=== PATIENT | female | born 1965 | race African-American/Black ===

== ENCOUNTER 2016-03-19 06:25 | Inpatient (IN) | payer OTHER ==
[~2016-03-19] VITALS: Ht 167.6 cm; Wt 103.4 kg
[2016-03-19] VITALS (13 sets, daily range): BP systolic 133–190; BP diastolic 81–107
[~2016-03-19 06:25] MED LIST: ADVIL,NUPRIN,M200 MG PO; AMOXICILLIN500 MG PO; BACTRIM,SEPT1 TABLET PO; DEBROX15 ML LEFT EAR; HYDROCODON-ACE1 EAC7 PO; K-DUR20 MEQ PO; KEFLEX500 MG PO; LISINOPRIL10 MG PO; LOVENOX100 MG/1 M SC; OXAYDO5 MG PO; PHENAZOPYRIDIN100 MG PO; TYLENOL EXTRA500 MG PO
[2016-03-19 07:08] LABS: HEMATOCRIT 30.2 % (36.0-46.0); MCH 29.4 PG (29.0-34.0); MCHC 32.8 G/DL (30.0-36.0); MCV 89.6 FL (83-99); RBC DIS.WIDTH-CV 13.5 % (11.8-14.6); RBC DIS.WIDTH-SD 42.5 % (39-53); RED BLOOD COUNT 3.37 M/uL (3.80-5.20); WHITE BLOOD COUNT 3.3 K/uL (4.1-10.2)
[2016-03-19 07:10] LABS: PLATELET COUNT 119 K/uL (156-360)
[2016-03-19 07:38] LABS: D-DIMER ELISA 0.33 mg/L FEU (< 0.57)
[2016-03-19 07:39] LABS: ANION GAP 7 MEQ/L (2-14); CHLORIDE 110 MEQ/L (99-109); GFR ESTIMATE (CALCULATED) > 59 mL/min/; GLUCOSE 109 mg/dL (70-99); POTASSIUM 3.7 MEQ/L (3.7-5.4); SAMPLE HEMOLYSIS CHECK 0; SAMPLE ICTERIC CHECK 0; SAMPLE LIPEMIA CHECK 0; SODIUM 143 MEQ/L (136-147); UREA NITROGEN (BUN) 23 mg/dL (9-23)
[2016-03-19 07:44] LABS: TROP-I INTERPRETATION NEGATIVE; TROPONIN-I < 0.01 ng/mL (0.0-0.30)
[2016-03-19 08:16] LABS: HEMATOLOGY COMMENT 1 SMEAR COMPATIBLE
[2016-03-19 08:19] LABS: CREATINE KINASE 18 IU/L (1-294)
[2016-03-19] MEDS ORDERED: XARELTO20 MG PO (09:04)
[2016-03-19 11:28] LABS: TROP-I INTERPRETATION NEGATIVE; TROPONIN-I < 0.01 ng/mL (0.0-0.30)
[2016-03-19] MEDS ORDERED: LISINOPRIL10 MG PO (12:13)
[2016-03-19] MEDS ORDERED: TRAMADOL HCL50 MG PO (12:14)
[2016-03-19 14:43] LABS: INTER. NORMALIZED RATIO 1.2; PROTHROMBIN TIME 11.8 (9.2-11.2); PTT 30.8 (25-32)
[2016-03-19 18:23] LABS: METH RESISTANT S AUREUS PCR NEGATIVE (NEGATIVE)
[2016-03-19 18:32] LABS: PROBE CHECK PASS; SPECIMEN PROCESSING CONTROL PASS
[2016-03-20] VITALS (27 sets, daily range): BP systolic 117–171; BP diastolic 67–91
[2016-03-20 05:51] LABS: HEMATOCRIT 28.9 % (36.0-46.0); MCH 28.7 PG (29.0-34.0); MCHC 32.5 G/DL (30.0-36.0); MCV 88.1 FL (83-99); MEAN PLAT.VOLUME 11.3 uM^3 (9.5-12.4); PLATELET COUNT 100 K/uL (156-360); RBC DIS.WIDTH-CV 13.7 % (11.8-14.6); RBC DIS.WIDTH-SD 44.1 % (39-53); RED BLOOD COUNT 3.28 M/uL (3.80-5.20); WHITE BLOOD COUNT 4.2 K/uL (4.1-10.2)
[2016-03-20 06:06] LABS: INTER. NORMALIZED RATIO 1.3; PROTHROMBIN TIME 13.3 (9.2-11.2)
[2016-03-20 06:13] LABS: ANION GAP 11 MEQ/L (2-14); CHLORIDE 103 MEQ/L (99-109); GFR ESTIMATE (CALCULATED) > 59 mL/min/; GLUCOSE 108 mg/dL (70-99); POTASSIUM 3.1 MEQ/L (3.7-5.4); SAMPLE HEMOLYSIS CHECK 0; SAMPLE ICTERIC CHECK 0; SAMPLE LIPEMIA CHECK 0; SODIUM 139 MEQ/L (136-147); UREA NITROGEN (BUN) 14 mg/dL (9-23)
[2016-03-21] VITALS (10 sets, daily range): BP systolic 121–165; BP diastolic 70–87
[2016-03-21 05:51] LABS: MEAN PLAT.VOLUME 11.2 uM^3 (9.5-12.4); PLATELET COUNT 93 K/uL (156-360)
[2016-03-21 06:22] LABS: HEMATOCRIT 27.6 % (36.0-46.0); MCH 29.3 PG (29.0-34.0); MCHC 32.6 G/DL (30.0-36.0); MCV 89.9 FL (83-99); RBC DIS.WIDTH-CV 14.2 % (11.8-14.6); RBC DIS.WIDTH-SD 45.9 % (39-53); RED BLOOD COUNT 3.07 M/uL (3.80-5.20); WHITE BLOOD COUNT 4.5 K/uL (4.1-10.2)
[2016-03-21 06:32] LABS: EOSINOPHIL (%) 0.9 % (0-5); HEMATOLOGY COMMENT 1 REV; IMMATURE GRANULOCYTE (%) 5.2 % (0.0-0.7); IMMATURE GRANULOCYTE COUNT 0.2 K/uL; LYMPHOCYTE COUNT 0.7 K/uL (1.0-2.8); MONOCYTE (%) 17.8 % (3-12); MONOCYTE COUNT 0.8 K/uL (0-0.8); NEUTROPHIL (%) 59.7 % (45-76); NEUTROPHIL COUNT 2.7 K/uL (1.8-6.4); USER ID SLU
[2016-03-21 06:33] LABS: ANION GAP 10 MEQ/L (2-14); CHLORIDE 104 MEQ/L (99-109); GFR ESTIMATE (CALCULATED) > 59 mL/min/; GLUCOSE 110 mg/dL (70-99); MAGNESIUM 1.3 mg/dl (1.3-2.7); POTASSIUM 3.7 MEQ/L (3.7-5.4); SAMPLE HEMOLYSIS CHECK 0; SAMPLE ICTERIC CHECK 0; SAMPLE LIPEMIA CHECK 0; SODIUM 138 MEQ/L (136-147)
[2016-03-21 06:34] LABS: UREA NITROGEN (BUN) 25 mg/dL (9-23)
[2016-03-21 09:29] LABS: CREATINE KINASE 13 IU/L (1-294)
[2016-03-21 09:53] LABS: TROP-I INTERPRETATION NEGATIVE; TROPONIN-I < 0.01 ng/mL (0.0-0.30)
[2016-03-21 14:20] LABS: ADD MIUA? YES; BILIRUBIN NEGATIVE; BLOOD SMALL; COLOR YELLOW ((YELLOW)); GLUCOSE (STRIP) NEGATIVE; KETONES NEGATIVE; LEUKOCYTES NEGATIVE; NITRITE NEGATIVE; PH, URINE 5.5 (5-8); PROTEIN (STRIP) NEGATIVE; SPECIFIC GRAVITY 1.021 (1.000-1.030)
[2016-03-21 14:34] LABS: AMPHETAMINES QUANT VALUE 0 NG/ML; BARBITUATES QUANT VALUE 0 NG/ML; BENZODIAZEPINES QUANT VALUE 0 NG/ML; BENZODIAZEPINES, URINE SCREEN Negative (200 ng/mL); MARIJUANA QUANT VALUE 0 NG/ML; PHENCYCLIDINE QUANT VALUE 0 NG/ML
[2016-03-21 14:42] LABS: BACTERIA NONE SEEN /HPF; CASTS NONE SEEN /LPF; CRYSTALS NONE SEEN; EPITHELIAL CELLS 1+ /HPF; MUCUS NONE SEEN /LPF; PATHOLOGICAL CAST NONE SEEN; RED BLOOD CELLS 0-5 /HPF (0-5); SMALL ROUND CELL NONE SEEN; UCUL ADDED? NO; YEAST-LIKE CELL NONE SEEN
[2016-03-21] MEDS ORDERED: LISINOPRIL-HCT1 EAC3 PO (14:59)
[2016-03-21] MEDS ORDERED: GABAPENTIN100 MG PO (15:00)
[2016-03-21] MEDS ORDERED: LABETALOL HCL100 MG PO (15:10)
== END 2016-03-21 17:10 | disposition home or self-care (01) | DRG 305 ==
LOC: EME 06:25 → 4WEST 13:08 → EDOF 13:08 → 4WEST 15:01
PROVIDERS: Emergency Medicine; Hospitalist; Internal Medicine Critical Care Medicine; Obstetrics & Gynecology
DX: I16.1 Hypertensive emergency (principal); E83.42 Hypomagnesemia; D69.6 Thrombocytopenia, unspecified; R07.9 Chest pain, unspecified; E87.6 Hypokalemia; R94.31 Abnormal electrocardiogram [ECG] [EKG]; D53.9 Nutritional anemia, unspecified; C53.9 Malignant neoplasm of cervix uteri, unspecified; D50.0 Iron deficiency anemia secondary to blood loss (chronic); Z86.711 Personal history of pulmonary embolism; Z87.891 Personal history of nicotine dependence
CPT/HCPCS: 71020; 71275; 80048; 81003; 82550; 83735; 84100; 84484; 85025; 85027; 85379; 85610; 85730; 87641; 93005; 99281; 99285; J2270; J2405; J3010; J3475; J7030; J7050

== ENCOUNTER 2016-10-03 15:50 | Inpatient (IN) | payer OTHER ==
[~2016-10-03] VITALS: Ht 162.6 cm; Wt 105.5 kg
[~2016-10-03 15:50] MED LIST changes: +GABAPENTIN100 MG PO; +LABETALOL HCL100 MG PO; +LISINOPRIL-HCT1 EAC3 PO; +TRAMADOL HCL50 MG PO; +XARELTO20 MG PO
[2016-10-03 16:58] LABS: HEMATOCRIT 24.1 % (36.0-46.0); MCH 30.4 PG (29.0-34.0); MCHC 31.5 G/DL (30.0-36.0); RBC DIS.WIDTH-CV 20.7 % (11.8-14.6); RBC DIS.WIDTH-SD 71.2 % (39-53); WHITE BLOOD COUNT 4.5 K/uL (4.1-10.2)
[2016-10-03 16:59] LABS: EOSINOPHIL COUNT 0.1 K/uL (0-0.3); IMMATURE GRANULOCYTE (%) 0.2 % (0.0-0.7); INSTRUMENT ABS NEUTROPHIL CT 3.5 K/uL; LYMPHOCYTE COUNT 0.6 K/uL (1.0-2.8); MONOCYTE (%) 6.4 % (3-12); MONOCYTE COUNT 0.3 K/uL (0-0.8); NEUTROPHIL (%) 77.2 % (45-76); NEUTROPHIL COUNT 3.5 K/uL (1.8-6.4)
[2016-10-03 17:01] LABS: MCV 96.4 FL (83-99); PLATELET COUNT 225 K/uL (156-360)
[2016-10-03 17:06] LABS: CHLORIDE 107 mEq/L (99-109); POTASSIUM 3.6 mEq/L (3.7-5.4); SODIUM 143 mEq/L (136-147)
[2016-10-03 17:08] LABS: GLUCOSE 106 mg/dL (70-99)
[2016-10-03 17:09] LABS: ANION GAP 11 MEQ/L (2-14)
[2016-10-03 17:10] LABS: TOTAL BILIRUBIN 0.4 mg/dL (0.0-1.0)
[2016-10-03 17:12] LABS: ALKALINE PHOSPHATASE 98 IU/L (3-129); GFR ESTIMATE (CALCULATED) > 59 mL/min/
[2016-10-03 17:13] LABS: UREA NITROGEN (BUN) 27 mg/dL (9-23)
[2016-10-03] MEDS ORDERED: LISINOPRIL-HCT1 EAC3 PO (17:54)
[2016-10-03] MEDS ORDERED: COLACE100 MG PO (17:55)
[2016-10-03 22:42] VITALS: BP 137/81
[2016-10-04] VITALS (11 sets, daily range): BP systolic 126–173; BP diastolic 59–82
[2016-10-04 08:14] LABS: HEMATOCRIT 23.8 % (36.0-46.0); MCH 30.5 PG (29.0-34.0); MCHC 30.7 G/DL (30.0-36.0); MCV 99.6 FL (83-99); MEAN PLAT.VOLUME 9.3 uM^3 (9.5-12.4); NRBC (%) 0.5 /100 WBC (0-0); PLATELET COUNT 230 K/uL (156-360); RBC DIS.WIDTH-CV 20.9 % (11.8-14.6); RBC DIS.WIDTH-SD 74.9 % (39-53); RED BLOOD COUNT 2.39 M/uL (3.80-5.20); WHITE BLOOD COUNT 3.9 K/uL (4.1-10.2)
[2016-10-04 08:44] LABS: ANION GAP 11 MEQ/L (2-14); CHLORIDE 109 MEQ/L (99-109); GFR ESTIMATE (CALCULATED) > 59 mL/min/; GLUCOSE 154 mg/dL (70-99); POTASSIUM 4.2 MEQ/L (3.7-5.4); SAMPLE HEMOLYSIS CHECK 0; SAMPLE ICTERIC CHECK 0; SAMPLE LIPEMIA CHECK 0; SODIUM 144 MEQ/L (136-147); UREA NITROGEN (BUN) 37 mg/dL (9-23)
[2016-10-05 03:00] VITALS: BP 160/72
[2016-10-05 08:12] LABS: MCHC 32.4 G/DL (30.0-36.0); MCV 95.7 FL (83-99); MEAN PLAT.VOLUME 9.1 uM^3 (9.5-12.4); NRBC (%) 0.5 /100 WBC (0-0); PLATELET COUNT 232 K/uL (156-360); RBC DIS.WIDTH-CV 19.5 % (11.8-14.6); RBC DIS.WIDTH-SD 66.7 % (39-53); WHITE BLOOD COUNT 6.3 K/uL (4.1-10.2)
[2016-10-05 08:13] LABS: RED BLOOD COUNT 3.03 M/uL (3.80-5.20)
[2016-10-05 08:30] LABS: ANION GAP 9 MEQ/L (2-14); CHLORIDE 107 MEQ/L (99-109); GFR ESTIMATE (CALCULATED) > 59 mL/min/; GLUCOSE 135 mg/dL (70-99); POTASSIUM 4.4 MEQ/L (3.7-5.4); SAMPLE HEMOLYSIS CHECK 0; SAMPLE ICTERIC CHECK 0; SAMPLE LIPEMIA CHECK 0; SODIUM 140 MEQ/L (136-147); UREA NITROGEN (BUN) 49 mg/dL (9-23)
[2016-10-05 08:44] VITALS: BP 142/80
[2016-10-05 11:32] VITALS: BP 149/70
[2016-10-05 16:10] VITALS: BP 141/97
[2016-10-05 16:44] LABS: INTERNAL CONTROL VALID? YES
[2016-10-05 19:48] VITALS: BP 144/63
[2016-10-05 23:03] VITALS: BP 133/61
[2016-10-06 03:39] VITALS: BP 170/79
[2016-10-06 07:47] LABS: ANION GAP 6 MEQ/L (2-14); CHLORIDE 106 MEQ/L (99-109); GFR ESTIMATE (CALCULATED) > 59 mL/min/; GLUCOSE 131 mg/dL (70-99); POTASSIUM 4.2 MEQ/L (3.7-5.4); SAMPLE HEMOLYSIS CHECK 0; SAMPLE ICTERIC CHECK 0; SAMPLE LIPEMIA CHECK 0; SODIUM 139 MEQ/L (136-147); UREA NITROGEN (BUN) 51 mg/dL (9-23)
[2016-10-06 07:50] VITALS: BP 173/74
[2016-10-06 08:14] LABS: HEMATOCRIT 27.6 % (36.0-46.0); MCV 98.2 FL (83-99)
[2016-10-06 11:50] VITALS: BP 159/92
[2016-10-06 19:54] VITALS: BP 138/75
[2016-10-06 23:39] VITALS: BP 156/75
[2016-10-07 04:06] VITALS: BP 143/66
[2016-10-07 08:11] VITALS: BP 127/79
[2016-10-07 11:01] VITALS: BP 168/92
[2016-10-07 16:55] VITALS: BP 152/74
[2016-10-07 20:03] LABS: HEMATOCRIT 29.3 % (36.0-46.0); MCH 31.8 PG (29.0-34.0); MCHC 32.8 G/DL (30.0-36.0); MEAN PLAT.VOLUME 9.8 uM^3 (9.5-12.4); NRBC (%) 0.8 /100 WBC (0-0); PLATELET COUNT 226 K/uL (156-360); RBC DIS.WIDTH-CV 19.4 % (11.8-14.6); RBC DIS.WIDTH-SD 66.6 % (39-53); RED BLOOD COUNT 3.02 M/uL (3.80-5.20); WHITE BLOOD COUNT 6.1 K/uL (4.1-10.2)
[2016-10-07 20:13] LABS: INTER. NORMALIZED RATIO 1.1; PROTHROMBIN TIME 12.4 SEC (10.2-12.9)
[2016-10-07 20:16] LABS: PTT 28.7 SEC (25-37)
[2016-10-07 20:58] LABS: FERRITIN 260 NG/ML (10-291)
[2016-10-07 21:33] VITALS: BP 163/80
[2016-10-07 21:45] LABS: IRON 89 MCG/DL (35-150)
[2016-10-08] VITALS (9 sets, daily range): BP systolic 118–210; BP diastolic 63–102
[2016-10-08 15:19] LABS: EOSINOPHIL (%) 0 % (0-5); HEMATOCRIT 31.2 % (36.0-46.0); IMMATURE GRANULOCYTE (%) 1.3 % (0.0-0.7); IMMATURE GRANULOCYTE COUNT 0.1 K/uL; INSTRUMENT ABS NEUTROPHIL CT 5.2 K/uL; LYMPHOCYTE COUNT 0.3 K/uL (1.0-2.8); MCH 30.8 PG (29.0-34.0); MCHC 32.1 G/DL (30.0-36.0); MEAN PLAT.VOLUME 9.4 uM^3 (9.5-12.4); MONOCYTE (%) 8.7 % (3-12); MONOCYTE COUNT 0.5 K/uL (0-0.8); NEUTROPHIL (%) 84.4 % (45-76); NEUTROPHIL COUNT 5.2 K/uL (1.8-6.4); PLATELET COUNT 220 K/uL (156-360); RBC DIS.WIDTH-CV 19.1 % (11.8-14.6); RBC DIS.WIDTH-SD 66.2 % (39-53); RED BLOOD COUNT 3.25 M/uL (3.80-5.20); WHITE BLOOD COUNT 6.1 K/uL (4.1-10.2)
[2016-10-09 04:00] VITALS: BP 141/77
[2016-10-09 06:23] LABS: HEMATOCRIT 29.7 % (36.0-46.0); MCHC 32.3 G/DL (30.0-36.0); MCV 95.8 FL (83-99); MEAN PLAT.VOLUME 9.7 uM^3 (9.5-12.4); PLATELET COUNT 219 K/uL (156-360); RBC DIS.WIDTH-CV 18.9 % (11.8-14.6); RBC DIS.WIDTH-SD 66.4 % (39-53); WHITE BLOOD COUNT 5.2 K/uL (4.1-10.2)
[2016-10-09 07:16] VITALS: BP 144/77
[2016-10-09 11:22] VITALS: BP 156/87
[2016-10-09] MEDS ORDERED: PANTOPRAZOLE SO40 MG PO (13:52)
[2016-10-09] MEDS ORDERED: AMLODIPINE BESYL5 MG PO (13:52)
[2016-10-09] MEDS ORDERED: DECADRON4 MG PO (13:52)
== END 2016-10-09 16:12 | disposition home or self-care (01) | DRG 54 ==
LOC: EME 15:50 → EDOF 18:21 → 3EAST 18:21 → ENRESERV 18:26 → 3EAST 22:26
PROVIDERS: Hospitalist; Internal Medicine; Physician Assistant; Specialist
PROC: 30233N1 Transfusion of Nonautologous Red Blood Cells into Peripheral Vein, Percutaneous Approach (ICD-10-PCS; principal; 2016-10-04)
DX: C79.31 Secondary malignant neoplasm of brain (principal); G93.6 Cerebral edema; C78.00 Secondary malignant neoplasm of unspecified lung; C78.7 Secondary malignant neoplasm of liver and intrahepatic bile duct; C79.72 Secondary malignant neoplasm of left adrenal gland; C77.1 Secondary and unspecified malignant neoplasm of intrathoracic lymph nodes; C79.81 Secondary malignant neoplasm of breast; D62 Acute posthemorrhagic anemia; C79.11 Secondary malignant neoplasm of bladder; C79.89 Secondary malignant neoplasm of other specified sites; C53.9 Malignant neoplasm of cervix uteri, unspecified; F05 Delirium due to known physiological condition; I10 Essential (primary) hypertension; G43.909 Migraine, unspecified, not intractable, without status migrainosus; D64.81 Anemia due to antineoplastic chemotherapy; T50.8X5A Adverse effect of diagnostic agents, initial encounter; C77.0 Secondary and unspecified malignant neoplasm of lymph nodes of head, face and neck; R19.5 Other fecal abnormalities; D64.89 Other specified anemias; E66.9 Obesity, unspecified; Z60.2 Problems related to living alone; Z68.39 Body mass index [BMI] 39.0-39.9, adult; Z79.01 Long term (current) use of anticoagulants; Z86.711 Personal history of pulmonary embolism; Z86.718 Personal history of other venous thrombosis and embolism; Z87.891 Personal history of nicotine dependence; Z82.49 Family history of ischemic heart disease and other diseases of the circulatory system; Z83.2 Family history of diseases of the blood and blood-forming organs and certain disorders involving the immune mechanism
CPT/HCPCS: 77307; 77331; 77334; 77412; 77417; 80048; 80053; 81003; 82272; 82728; 83540; 84466; 85014; 85018; 85025; 85027; 85610; 85730; 86900; 86901; 86920; 99281; 99285; J0360; J1100; J1885; J2550; J7030; P9016

== ENCOUNTER 2016-11-26 20:27 | Inpatient (IN) | payer OTHER ==
[~2016-11-26] VITALS: Ht 167.6 cm; Wt 103.0 kg
[~2016-11-26 20:27] MED LIST changes: +AMLODIPINE BESYL5 MG PO; +COLACE100 MG PO; +DECADRON4 MG PO; +PANTOPRAZOLE SO40 MG PO
[2016-11-26 21:47] LABS: HEMATOCRIT 33.5 % (36.0-46.0); MCHC 32.5 G/DL (30.0-36.0); MCV 95.2 FL (83-99); MEAN PLAT.VOLUME 9.8 uM^3 (9.5-12.4); PLATELET COUNT 247 K/uL (156-360); RBC DIS.WIDTH-CV 14.5 % (11.8-14.6); RBC DIS.WIDTH-SD 50.3 % (39-53); RED BLOOD COUNT 3.52 M/uL (3.80-5.20); WHITE BLOOD COUNT 8.8 K/uL (4.1-10.2)
[2016-11-26 21:55] LABS: CHLORIDE 105 mEq/L (99-109); POTASSIUM 3.9 mEq/L (3.7-5.4); SODIUM 140 mEq/L (136-147)
[2016-11-26 21:57] LABS: GLUCOSE 88 mg/dL (70-99)
[2016-11-26 21:58] LABS: ANION GAP 13 MEQ/L (2-14)
[2016-11-26 22:01] LABS: GFR ESTIMATE (CALCULATED) > 59 mL/min/
[2016-11-26 22:02] LABS: UREA NITROGEN (BUN) 44 mg/dL (9-23)
[2016-11-26 22:07] LABS: TROP-I INTERPRETATION NEGATIVE; TROPONIN-I < 0.01 ng/mL (0.0-0.30)
[2016-11-26 22:09] LABS: QUANTITATIVE HCG < 4.0 MIU/ML
[2016-11-27] MEDS ORDERED: AMLODIPINE BESYL5 MG PO (01:28)
[2016-11-27] MEDS ORDERED: XARELTO20 MG PO (01:29)
[2016-11-27 01:31] LABS: ADD MIUA? YES; BILIRUBIN NEGATIVE; BLOOD MODERATE; COLOR YELLOW ((YELLOW)); GLUCOSE (STRIP) NEGATIVE; KETONES 5; LEUKOCYTES TRACE; NITRITE NEGATIVE; PROTEIN (STRIP) 30
[2016-11-27 01:43] LABS: EPITHELIAL CELLS 1+ /HPF; MUCUS 1+ /LPF; RED BLOOD CELLS NONE SEEN /HPF (0-5); WHITE BLOOD CELLS NONE SEEN /HPF (0-5)
[2016-11-27 01:44] LABS: AMORPHOUS URATES CRYSTALS 3+; BACTERIA 1+ /HPF; CRYSTALS PRESENT; UCUL ADDED? NO; URIC ACID CRYSTALS 2+ /HPF
[2016-11-27 03:42] LABS: HEMATOCRIT 30.7 % (36.0-46.0); MCV 95.6 FL (83-99)
[2016-11-27 03:49] LABS: CHLORIDE 108 mEq/L (99-109); POTASSIUM 3.7 mEq/L (3.7-5.4); SODIUM 142 mEq/L (136-147)
[2016-11-27 03:53] LABS: ANION GAP 14 MEQ/L (2-14); GLUCOSE 118 mg/dL (70-99)
[2016-11-27 03:54] LABS: TOTAL BILIRUBIN 0.4 mg/dL (0.0-1.0)
[2016-11-27 03:55] LABS: ALKALINE PHOSPHATASE 85 IU/L (3-129)
[2016-11-27 03:56] LABS: GFR ESTIMATE (CALCULATED) > 59 mL/min/
[2016-11-27 03:57] LABS: DIRECT BILIRUBIN 0.2 mg/dL (0.0-0.3); UREA NITROGEN (BUN) 42 mg/dL (9-23)
[2016-11-27 03:58] LABS: CREATINE KINASE 93 IU/L (1-294)
[2016-11-27 04:00] LABS: TROP-I INTERPRETATION NEGATIVE; TROPONIN-I < 0.01 ng/mL (0.0-0.30)
[2016-11-27 06:00] LABS: HEMATOCRIT 31.5 % (36.0-46.0); MCH 31.1 PG (29.0-34.0); MCHC 32.7 G/DL (30.0-36.0); MCV 95.2 FL (83-99); MEAN PLAT.VOLUME 9.7 uM^3 (9.5-12.4); PLATELET COUNT 236 K/uL (156-360); RBC DIS.WIDTH-CV 14.4 % (11.8-14.6); RBC DIS.WIDTH-SD 50.6 % (39-53); RED BLOOD COUNT 3.31 M/uL (3.80-5.20); WHITE BLOOD COUNT 7.8 K/uL (4.1-10.2)
[2016-11-27 07:45] VITALS: BP 95/56
[2016-11-27] MEDS ORDERED: PROTONIX40 MG PO (08:18)
[2016-11-27 11:19] LABS: TROP-I INTERPRETATION NEGATIVE; TROPONIN-I < 0.01 ng/mL (0.0-0.30)
[2016-11-27 11:22] VITALS: BP 138/58
[2016-11-27 15:39] VITALS: BP 124/64
[2016-11-27 20:52] VITALS: BP 132/75
[2016-11-27 23:44] VITALS: BP 106/74
[2016-11-28 03:41] VITALS: BP 114/73
[2016-11-28 08:45] VITALS: BP 110/60
[2016-11-28 11:09] VITALS: BP 128/76
[2016-11-28 15:58] VITALS: BP 113/55
[2016-11-28 19:44] VITALS: BP 129/75
[2016-11-28 23:32] VITALS: BP 117/66
[2016-11-29 03:19] VITALS: BP 130/81
[2016-11-29 08:34] VITALS: BP 149/75
[2016-11-29 11:33] VITALS: BP 151/80
[2016-11-29 15:46] VITALS: BP 134/72
[2016-11-29 19:39] VITALS: BP 106/55
[2016-11-30 00:02] VITALS: BP 118/64
[2016-11-30 03:28] VITALS: BP 115/58
[2016-11-30 08:20] VITALS: BP 163/81
[2016-11-30] MEDS ORDERED: DEXAMETHASONE4 MG PO (10:34)
[2016-11-30 11:37] VITALS: BP 143/63
== END 2016-11-30 14:34 | disposition home or self-care (01) | DRG 81 ==
LOC: EME → EDBD 20:27 → EME 20:27 → EDOF 11-27 02:54 → 5WEST 11-27 02:54 → ENRESERV 11-27 02:56 → 5WEST 11-27 07:30 → ENRESERV 11-27 14:22 → CANRESERV 11-27 14:22 → ENRESERV 11-27 16:27 → CANRESERV 11-27 16:27 → 5WEST 11-30 14:34
PROVIDERS: Emergency Medicine; Hospitalist
DX: G93.6 Cerebral edema (principal); C79.31 Secondary malignant neoplasm of brain; E86.0 Dehydration; C53.9 Malignant neoplasm of cervix uteri, unspecified; D64.9 Anemia, unspecified; J98.11 Atelectasis; I10 Essential (primary) hypertension; E66.01 Morbid (severe) obesity due to excess calories; K21.9 Gastro-esophageal reflux disease without esophagitis; W19.XXXA Unspecified fall, initial encounter; Z87.891 Personal history of nicotine dependence; Z86.711 Personal history of pulmonary embolism; Z86.718 Personal history of other venous thrombosis and embolism; Z92.21 Personal history of antineoplastic chemotherapy; Z92.3 Personal history of irradiation; Z79.01 Long term (current) use of anticoagulants; Z79.899 Other long term (current) drug therapy; Z83.2 Family history of diseases of the blood and blood-forming organs and certain disorders involving the immune mechanism
CPT/HCPCS: 70450; 70553; 71010; 78582; 80048; 80076; 81003; 82550; 83605; 84484; 84702; 85014; 85018; 85027; 85379; 87040; 93005; 94799; 99281; 99285; A9540; A9567; J1100; J7030; J8540

== ENCOUNTER 2016-12-31 20:10 | Inpatient (IN) | payer OTHER ==
[~2016-12-31] VITALS: Ht 167.6 cm; Wt 116.5 kg
[~2016-12-31 20:10] MED LIST changes: +DEXAMETHASONE4 MG PO; +PROTONIX40 MG PO
[2016-12-31 20:42] LABS: HEMATOCRIT 34.6 % (36.0-46.0); MCH 29.3 PG (29.0-34.0); MCHC 30.6 G/DL (30.0-36.0); MCV 95.6 FL (83-99); MEAN PLAT.VOLUME 11.1 uM^3 (9.5-12.4); NRBC (%) 0.3 /100 WBC (0-0); PLATELET COUNT 192 K/uL (156-360); RBC DIS.WIDTH-SD 56.5 % (39-53); RED BLOOD COUNT 3.62 M/uL (3.80-5.20); WHITE BLOOD COUNT 11.8 K/uL (4.1-10.2)
[2016-12-31 20:58] LABS: CHLORIDE 110 mEq/L (99-109); POTASSIUM 5.5 mEq/L (3.7-5.4); SODIUM 148 mEq/L (136-147)
[2016-12-31 21:00] LABS: GLUCOSE 176 mg/dL (70-99)
[2016-12-31 21:01] LABS: ANION GAP 18 MEQ/L (2-14)
[2016-12-31 21:02] LABS: TOTAL BILIRUBIN 0.6 mg/dL (0.0-1.0)
[2016-12-31 21:03] LABS: ALKALINE PHOSPHATASE 226 IU/L (3-129)
[2016-12-31 21:04] LABS: GFR ESTIMATE (CALCULATED) 19 mL/min/
[2016-12-31 21:05] LABS: UREA NITROGEN (BUN) 91 mg/dL (9-23)
[2016-12-31 21:12] LABS: QUANTITATIVE HCG 5.7 MIU/ML
[2016-12-31] MEDS ORDERED: VENLAFAXINE H37.5 MG PO (22:35)
[2017-01-01 00:28] VITALS: BP 108/70
[2017-01-01 01:07] LABS: POINT-OF-CARE METER ID UU13113774
[2017-01-01 03:58] VITALS: BP 98/66
[2017-01-01 05:56] LABS: POINT-OF-CARE METER ID UU13113774
[2017-01-01 08:41] VITALS: BP 100/70
[2017-01-01 09:42] LABS: ALKALINE PHOSPHATASE 232 IU/L (3-129); ANION GAP 17 MEQ/L (2-14); CHLORIDE 112 MEQ/L (99-109); GFR ESTIMATE (CALCULATED) 24 mL/min/; POTASSIUM 5.7 MEQ/L (3.7-5.4); SAMPLE HEMOLYSIS CHECK 1; SAMPLE ICTERIC CHECK 0; SAMPLE LIPEMIA CHECK 0; SODIUM 146 MEQ/L (136-147); TOTAL BILIRUBIN 0.7 MG/DL (0.0-1.0); UREA NITROGEN (BUN) 95 mg/dL (9-23)
[2017-01-01 09:44] LABS: GLUCOSE 120 mg/dL (70-99)
[2017-01-01 10:48] LABS: EOSINOPHIL (%) 0 % (0-5); HEMATOCRIT 31.8 % (36.0-46.0); IMMATURE GRANULOCYTE COUNT 0.3 K/uL; INSTRUMENT ABS NEUTROPHIL CT 9.4 K/uL; LYMPHOCYTE COUNT 0.5 K/uL (1.0-2.8); MCH 29.2 PG (29.0-34.0); MCHC 29.9 G/DL (30.0-36.0); MCV 97.8 FL (83-99); MONOCYTE (%) 5.8 % (3-12); MONOCYTE COUNT 0.6 K/uL (0-0.8); NEUTROPHIL (%) 86.1 % (45-76); NEUTROPHIL COUNT 9.4 K/uL (1.8-6.4); NRBC (%) 0.2 /100 WBC (0-0); RBC DIS.WIDTH-CV 16.1 % (11.8-14.6); RBC DIS.WIDTH-SD 58.5 % (39-53); RED BLOOD COUNT 3.25 M/uL (3.80-5.20)
[2017-01-01 11:08] LABS: MEAN PLAT.VOLUME 10.9 uM^3 (9.5-12.4); PLAT.SUFFICIENCY DECREASED
[2017-01-01 11:11] LABS: PLATELET COUNT 134 K/uL (156-360)
[2017-01-01 12:13] LABS: POINT-OF-CARE METER ID UU13113725
[2017-01-01 12:39] VITALS: BP 129/79
[2017-01-01 16:00] VITALS: BP 118/64
[2017-01-01 16:57] LABS: ANION GAP 14 MEQ/L (2-14); CHLORIDE 117 MEQ/L (99-109); GFR ESTIMATE (CALCULATED) 28 mL/min/; GLUCOSE 151 mg/dL (70-99); SAMPLE HEMOLYSIS CHECK 2; SAMPLE ICTERIC CHECK 0; SAMPLE LIPEMIA CHECK 0; SODIUM 147 MEQ/L (136-147); UREA NITROGEN (BUN) 89 mg/dL (9-23)
[2017-01-01 16:59] LABS: POINT-OF-CARE METER ID UU13113725
[2017-01-01 17:02] LABS: POTASSIUM 6.1 MEQ/L (3.7-5.4)
[2017-01-01 20:34] LABS: ADD MIUA? YES; BILIRUBIN NEGATIVE; BLOOD SMALL; COLOR YELLOW ((YELLOW)); GLUCOSE (STRIP) 150; KETONES 5; LEUKOCYTES SMALL; NITRITE NEGATIVE; PROTEIN (STRIP) 30; SPECIFIC GRAVITY 1.014 (1.000-1.030); UROBILINOGEN 0.2 MG/DL (0.2-1.0)
[2017-01-01 20:58] LABS: BACTERIA 2+ /HPF; EPITHELIAL CELLS 1+ /HPF; MUCUS NONE SEEN /LPF; RED BLOOD CELLS 0-5 /HPF (0-5); UCUL ADDED? YES; WHITE BLOOD CELLS 0-5 /HPF (0-5)
[2017-01-01 23:22] VITALS: BP 113/65
[2017-01-01 23:46] LABS: POINT-OF-CARE METER ID UU13113774
[2017-01-02 05:21] LABS: EOSINOPHIL (%) 0 % (0-5); HEMATOCRIT 26.1 % (36.0-46.0); IMMATURE GRANULOCYTE (%) 4.2 % (0.0-0.7); IMMATURE GRANULOCYTE COUNT 0.4 K/uL; INSTRUMENT ABS NEUTROPHIL CT 7.5 K/uL; LYMPHOCYTE COUNT 0.3 K/uL (1.0-2.8); MCH 29.7 PG (29.0-34.0); MCV 95.6 FL (83-99); MEAN PLAT.VOLUME 11.4 uM^3 (9.5-12.4); MONOCYTE (%) 6.1 % (3-12); MONOCYTE COUNT 0.5 K/uL (0-0.8); NEUTROPHIL (%) 85.7 % (45-76); NEUTROPHIL COUNT 7.5 K/uL (1.8-6.4); NRBC (%) 0.2 /100 WBC (0-0); PLATELET COUNT 104 K/uL (156-360); RBC DIS.WIDTH-CV 15.9 % (11.8-14.6); RBC DIS.WIDTH-SD 55.3 % (39-53); RED BLOOD COUNT 2.73 M/uL (3.80-5.20); WHITE BLOOD COUNT 8.7 K/uL (4.1-10.2)
[2017-01-02 05:23] LABS: POINT-OF-CARE METER ID UU13113774
[2017-01-02 05:48] LABS: ANION GAP 12 MEQ/L (2-14); CHLORIDE 116 MEQ/L (99-109); GFR ESTIMATE (CALCULATED) 34 mL/min/; GLUCOSE 220 mg/dL (70-99); SAMPLE HEMOLYSIS CHECK 0; SAMPLE ICTERIC CHECK 0; SAMPLE LIPEMIA CHECK 0; SODIUM 148 MEQ/L (136-147); UREA NITROGEN (BUN) 76 mg/dL (9-23)
[2017-01-02 05:51] LABS: POTASSIUM 4.6 MEQ/L (3.7-5.4)
[2017-01-02 08:28] VITALS: BP 117/67
[2017-01-02 11:42] VITALS: BP 110/66
[2017-01-02 11:52] LABS: POINT-OF-CARE METER ID UU13113774
[2017-01-02 15:10] VITALS: BP 111/68
[2017-01-02 17:17] LABS: POINT-OF-CARE METER ID UU13113774
[2017-01-02 22:56] VITALS: BP 105/65
[2017-01-03 00:51] LABS: POINT-OF-CARE METER ID UU13113725
[2017-01-03 05:57] LABS: POINT-OF-CARE METER ID UU13113774
[2017-01-03 06:52] VITALS: BP 96/51
[2017-01-03 07:52] LABS: ANION GAP 10 MEQ/L (2-14); CHLORIDE 107 MEQ/L (99-109); GFR ESTIMATE (CALCULATED) 51 mL/min/; GLUCOSE 203 mg/dL (70-99); POTASSIUM 4.1 MEQ/L (3.7-5.4); SAMPLE HEMOLYSIS CHECK 0; SAMPLE ICTERIC CHECK 0; SAMPLE LIPEMIA CHECK 0; UREA NITROGEN (BUN) 57 mg/dL (9-23)
[2017-01-03 07:53] LABS: SODIUM 140 MEQ/L (136-147)
[2017-01-03 10:24] LABS: POINT-OF-CARE METER ID UU13113725
[2017-01-03 13:43] LABS: HEMATOCRIT 24.6 % (36.0-46.0); MCH 29.3 PG (29.0-34.0); MCHC 30.5 G/DL (30.0-36.0); MCV 96.1 FL (83-99); MEAN PLAT.VOLUME 11.7 uM^3 (9.5-12.4); NRBC (%) 0.7 /100 WBC (0-0); PLATELET COUNT 110 K/uL (156-360); RBC DIS.WIDTH-CV 15.7 % (11.8-14.6); RBC DIS.WIDTH-SD 54.4 % (39-53); RED BLOOD COUNT 2.56 M/uL (3.80-5.20)
[2017-01-03 15:52] VITALS: BP 114/64
[2017-01-03 18:26] LABS: POINT-OF-CARE METER ID UU13113725
[2017-01-03 23:20] VITALS: BP 107/74
[2017-01-04 00:18] LABS: POINT-OF-CARE METER ID UU13113725
[2017-01-04 06:23] LABS: POINT-OF-CARE METER ID UU13113725
[2017-01-04 06:31] LABS: HEMATOCRIT 26.3 % (36.0-46.0); MCH 29.1 PG (29.0-34.0); MCHC 30.8 G/DL (30.0-36.0); MCV 94.6 FL (83-99); MEAN PLAT.VOLUME 11.5 uM^3 (9.5-12.4); NRBC (%) 1.2 /100 WBC (0-0); PLATELET COUNT 111 K/uL (156-360); RBC DIS.WIDTH-CV 15.6 % (11.8-14.6); RBC DIS.WIDTH-SD 54.1 % (39-53); RED BLOOD COUNT 2.78 M/uL (3.80-5.20); WHITE BLOOD COUNT 9.7 K/uL (4.1-10.2)
[2017-01-04 07:34] VITALS: BP 109/71
[2017-01-04 08:05] LABS: ANION GAP 11 MEQ/L (2-14); CHLORIDE 110 MEQ/L (99-109); GFR ESTIMATE (CALCULATED) > 59 mL/min/; GLUCOSE 194 mg/dL (70-99); POTASSIUM 4.4 MEQ/L (3.7-5.4); SAMPLE HEMOLYSIS CHECK 0; SAMPLE ICTERIC CHECK 0; SAMPLE LIPEMIA CHECK 0; SODIUM 144 MEQ/L (136-147); UREA NITROGEN (BUN) 54 mg/dL (9-23)
[2017-01-04 11:30] LABS: POINT-OF-CARE METER ID UU13113725
[2017-01-04 15:16] VITALS: BP 108/70
[2017-01-04 17:56] LABS: POINT-OF-CARE METER ID UU13113774
[2017-01-04 23:41] VITALS: BP 118/79
[2017-01-05] VITALS (7 sets, daily range): BP systolic 86–111; BP diastolic 55–76
[2017-01-05 00:16] LABS: POINT-OF-CARE METER ID UU13113725
[2017-01-05 05:38] LABS: HEMATOCRIT 27.4 % (36.0-46.0); MCH 29.7 PG (29.0-34.0); MCHC 30.7 G/DL (30.0-36.0); MCV 96.8 FL (83-99); MEAN PLAT.VOLUME 11.6 uM^3 (9.5-12.4); NRBC (%) 1.8 /100 WBC (0-0); PLATELET COUNT 98 K/uL (156-360); RBC DIS.WIDTH-CV 15.6 % (11.8-14.6); RED BLOOD COUNT 2.83 M/uL (3.80-5.20); WHITE BLOOD COUNT 9.7 K/uL (4.1-10.2)
[2017-01-05 06:12] LABS: POINT-OF-CARE METER ID UU13113774
[2017-01-05 06:21] LABS: ANION GAP 11 MEQ/L (2-14); CHLORIDE 109 MEQ/L (99-109); GFR ESTIMATE (CALCULATED) > 59 mL/min/; GLUCOSE 222 mg/dL (70-99); MAGNESIUM 1.8 mg/dl (1.3-2.7); POTASSIUM 4.3 MEQ/L (3.7-5.4); SAMPLE HEMOLYSIS CHECK 0; SAMPLE ICTERIC CHECK 0; SAMPLE LIPEMIA CHECK 0; SODIUM 143 MEQ/L (136-147); UREA NITROGEN (BUN) 50 mg/dL (9-23)
[2017-01-05 12:00] LABS: POINT-OF-CARE METER ID UU13113725
[2017-01-05 17:37] LABS: POINT-OF-CARE METER ID UU13113725
[2017-01-05 18:22] LABS: BASE EXCESS -8.4 mEq/L (-3 to +3); BICARBONATE 14.6 mEq/L (22-26); CARBOXY HGB 1.1 % (0-5); METHEMOGLOBIN 1.4 % (0-1.5); PCO2 22 mm Hg (35-45); PO2 139 mm Hg (80-100); pH 7.43 (7.35-7.45)
[2017-01-05 18:23] LABS: COMMENTS - BLOOD GASES A+C+; DEVICE NC; O2 FLOW 6 L/MIN; SITE RR
[2017-01-05 19:07] LABS: HEMATOCRIT 29.9 % (36.0-46.0); MCH 28.9 PG (29.0-34.0); MCHC 30.4 G/DL (30.0-36.0); MCV 94.9 FL (83-99); MEAN PLAT.VOLUME 11.5 uM^3 (9.5-12.4); NRBC (%) 13.4 /100 WBC (0-0); RBC DIS.WIDTH-SD 55.1 % (39-53); RED BLOOD COUNT 3.15 M/uL (3.80-5.20); WHITE BLOOD COUNT 8.4 K/uL (4.1-10.2)
[2017-01-05 19:19] LABS: ANION GAP 16 MEQ/L (2-14); CHLORIDE 105 MEQ/L (99-109); POTASSIUM 4.4 MEQ/L (3.7-5.4); SAMPLE HEMOLYSIS CHECK 0; SAMPLE ICTERIC CHECK 0; SAMPLE LIPEMIA CHECK 0; SODIUM 138 MEQ/L (136-147)
[2017-01-05 19:27] LABS: GFR ESTIMATE (CALCULATED) 56 mL/min/; TROP-I INTERPRETATION NEGATIVE; TROPONIN-I 0.07 ng/mL (0.0-0.30); UREA NITROGEN (BUN) 52 mg/dL (9-23)
[2017-01-05 19:31] LABS: GLUCOSE 388 mg/dL (70-99)
[2017-01-05 19:39] LABS: PLATELET COUNT 189 K/uL (156-360)
[2017-01-05 19:52] LABS: ANISOCYTOSIS 1+; ATYPICAL LYMPHOCYTE 0.9 %; EOSINOPHIL ABS CT 0; INSTRUMENT ABS NEUTROPHIL CT 6.9 K/uL; LYMPHOCYTES 6.1 % (15.0-45.0); METAMYELOCYTES 6.1 %; MICROCYTOSIS 1+; MYELOCYTES 2.6 %; NUCLEATED RBC'S 19.1; OVALOCYTES 1+; PLAT.SUFFICIENCY ADEQUATE; POIKILOCYTOSIS 1+; SEG.NEUTROPHILS 70.4 % (46.0-76.0)
[2017-01-05 21:50] LABS: METH RESISTANT S AUREUS PCR NEGATIVE (NEGATIVE)
[2017-01-05 21:54] LABS: PROBE CHECK PASS; SPECIMEN PROCESSING CONTROL PASS
[2017-01-06] VITALS (21 sets, daily range): BP systolic 78–146; BP diastolic 52–114
[2017-01-06 00:34] LABS: POINT-OF-CARE METER ID UU14314082
[2017-01-06 05:40] LABS: POINT-OF-CARE METER ID UU13113748
[2017-01-06 07:08] LABS: NRBC (%) 8.5 /100 WBC (0-0)
[2017-01-06 08:44] LABS: ANION GAP 5 MEQ/L (2-14); CHLORIDE 111 MEQ/L (99-109); GFR ESTIMATE (CALCULATED) 56 mL/min/; GLUCOSE 228 mg/dL (70-99); MAGNESIUM 1.6 mg/dl (1.3-2.7); SAMPLE HEMOLYSIS CHECK 0; SAMPLE ICTERIC CHECK 0; SAMPLE LIPEMIA CHECK 0; SODIUM 137 MEQ/L (136-147); UREA NITROGEN (BUN) 53 mg/dL (9-23)
[2017-01-06 08:47] LABS: MCH 29.3 PG (29.0-34.0); MCHC 31.7 G/DL (30.0-36.0); MCV 92.4 FL (83-99); MEAN PLAT.VOLUME 12.1 uM^3 (9.5-12.4); RBC DIS.WIDTH-CV 16.2 % (11.8-14.6); RBC DIS.WIDTH-SD 54.1 % (39-53); RED BLOOD COUNT 3.14 M/uL (3.80-5.20); WHITE BLOOD COUNT 7.7 K/uL (4.1-10.2)
[2017-01-06 08:48] LABS: PLATELET COUNT 92 K/uL (156-360)
[2017-01-06 12:10] LABS: POINT-OF-CARE METER ID UU14314083
[2017-01-06 17:58] LABS: POINT-OF-CARE METER ID UU14314083
[2017-01-07] VITALS (15 sets, daily range): BP systolic 85–146; BP diastolic 66–82
[2017-01-07 00:55] LABS: POINT-OF-CARE METER ID UU13113748
[2017-01-07 06:08] LABS: POINT-OF-CARE METER ID UU14314083
[2017-01-07 12:50] LABS: POINT-OF-CARE METER ID UU14314083
[2017-01-07 18:00] LABS: POINT-OF-CARE METER ID UU14314083
[2017-01-08] VITALS (11 sets, daily range): BP systolic 117–136; BP diastolic 60–90
[2017-01-08 01:26] LABS: POINT-OF-CARE METER ID UU14314088
[2017-01-08 06:02] LABS: POINT-OF-CARE METER ID UU14314088
[2017-01-08 09:13] LABS: HEMATOCRIT 21.6 % (36.0-46.0); MCH 28.7 PG (29.0-34.0); MCHC 29.6 G/DL (30.0-36.0); MCV 96.9 FL (83-99); NRBC (%) 2.2 /100 WBC (0-0); RBC DIS.WIDTH-CV 17.1 % (11.8-14.6); RBC DIS.WIDTH-SD 59.7 % (39-53); RED BLOOD COUNT 2.23 M/uL (3.80-5.20); WHITE BLOOD COUNT 7.6 K/uL (4.1-10.2)
[2017-01-08 09:36] LABS: ABS NEUTROPHIL COUNT 7.2; ANISOCYTOSIS 1+; BASOPHILS 0.9 %; BURR CELLS 2+; EOSINOPHIL ABS CT 0; HEMATOLOGY COMMENT 1 SN; INSTRUMENT ABS NEUTROPHIL CT 6.3 K/uL; LYMPHOCYTES 2.6 % (15.0-45.0); MEAN PLAT.VOLUME 12.8 uM^3 (9.5-12.4); MICROCYTOSIS 1+; MYELOCYTES 1.8 %; NUCLEATED RBC'S 4.4; PLAT.SUFFICIENCY DECREASED; POIKILOCYTOSIS 2+; POLYCHROMASIA 1+; SEG.NEUTROPHILS 87.7 % (46.0-76.0)
[2017-01-08 09:37] LABS: PLATELET COUNT 64 K/uL (156-360)
[2017-01-08 09:45] LABS: ANION GAP 13 MEQ/L (2-14); CHLORIDE 117 MEQ/L (99-109); GFR ESTIMATE (CALCULATED) > 59 mL/min/; GLUCOSE 172 mg/dL (70-99); SAMPLE HEMOLYSIS CHECK 0; SAMPLE ICTERIC CHECK 0; SAMPLE LIPEMIA CHECK 0; UREA NITROGEN (BUN) 48 mg/dL (9-23)
[2017-01-08 09:46] LABS: SODIUM 146 MEQ/L (136-147)
[2017-01-08 12:42] LABS: POINT-OF-CARE METER ID UU13113698
[2017-01-09 00:21] LABS: POINT-OF-CARE METER ID UU13113781
[2017-01-09 02:53] LABS: HEMATOCRIT 29.5 % (36.0-46.0); MCH 29.5 PG (29.0-34.0); MCHC 32.2 G/DL (30.0-36.0); MEAN PLAT.VOLUME 12.7 uM^3 (9.5-12.4); NRBC (%) 2.5 /100 WBC (0-0); PLATELET COUNT 62 K/uL (156-360); RBC DIS.WIDTH-CV 16.5 % (11.8-14.6); RBC DIS.WIDTH-SD 53.7 % (39-53); WHITE BLOOD COUNT 9.8 K/uL (4.1-10.2)
[2017-01-09 02:59] LABS: RED BLOOD COUNT 3.22 M/uL (3.80-5.20)
[2017-01-09 03:00] LABS: MCV 91.6 FL (83-99)
[2017-01-09 03:18] VITALS: BP 122/59
[2017-01-09 03:30] LABS: ABS NEUTROPHIL COUNT 9.3; ANISOCYTOSIS 1+; ATYPICAL LYMPHOCYTE 0.8 %; BURR CELLS 1+; EOSINOPHIL ABS CT 0; INSTRUMENT ABS NEUTROPHIL CT 8.5 K/uL; LYMPHOCYTES 2.6 % (15.0-45.0); MICROCYTOSIS 1+; MYELOCYTES 0.9 %; OVALOCYTES 1+; PLAT.SUFFICIENCY DECREASED; POIKILOCYTOSIS 2+; POLYCHROMASIA 1+; SEG.NEUTROPHILS 88.9 % (46.0-76.0)
[2017-01-09 06:30] LABS: POINT-OF-CARE METER ID UU13113781
[2017-01-09 07:27] VITALS: BP 140/82
[2017-01-09 10:41] LABS: ANION GAP 12 MEQ/L (2-14); CHLORIDE 121 MEQ/L (99-109); GFR ESTIMATE (CALCULATED) 56 mL/min/; GLUCOSE 189 mg/dL (70-99); POTASSIUM 4.3 MEQ/L (3.7-5.4); SAMPLE HEMOLYSIS CHECK 2; SAMPLE ICTERIC CHECK 0; SAMPLE LIPEMIA CHECK 0; SODIUM 149 MEQ/L (136-147); UREA NITROGEN (BUN) 51 mg/dL (9-23)
[2017-01-09 12:02] VITALS: BP 130/90
[2017-01-09 12:21] LABS: POINT-OF-CARE METER ID UU13113781
[2017-01-09 16:00] VITALS: BP 137/100
[2017-01-09 18:50] LABS: POINT-OF-CARE METER ID UU13113781
[2017-01-09 19:15] VITALS: BP 137/90
[2017-01-10] VITALS: BP 134/97
[2017-01-10 00:02] LABS: POINT-OF-CARE METER ID UU14314088
[2017-01-10 05:00] VITALS: BP 129/83
[2017-01-10 06:46] LABS: POINT-OF-CARE METER ID UU14314088
[2017-01-10 07:19] LABS: HEMATOCRIT 31.4 % (36.0-46.0); MCH 29.9 PG (29.0-34.0); MCHC 32.8 G/DL (30.0-36.0); MCV 91.3 FL (83-99); MEAN PLAT.VOLUME 12.7 uM^3 (9.5-12.4); NRBC (%) 2.8 /100 WBC (0-0); PLATELET COUNT 66 K/uL (156-360); RBC DIS.WIDTH-CV 17.2 % (11.8-14.6); RED BLOOD COUNT 3.44 M/uL (3.80-5.20); WHITE BLOOD COUNT 13.7 K/uL (4.1-10.2)
[2017-01-10 07:50] LABS: ABS NEUTROPHIL COUNT 12.9; ANISOCYTOSIS 1+; BAND NEUTROPHILS 7.8 % (0-8.0); BURR CELLS 1+; EOSINOPHIL ABS CT 0; HEMATOLOGY COMMENT 1 SN; INSTRUMENT ABS NEUTROPHIL CT 11.4 K/uL; METAMYELOCYTES 0.9 %; MICROCYTOSIS 1+; NUCLEATED RBC'S 0.9; PLAT.SUFFICIENCY DECREASED; POIKILOCYTOSIS 1+; SEG.NEUTROPHILS 86.1 % (46.0-76.0)
[2017-01-10 07:54] LABS: ANION GAP 14 MEQ/L (2-14); CHLORIDE 123 MEQ/L (99-109); GFR ESTIMATE (CALCULATED) 41 mL/min/; GLUCOSE 193 mg/dL (70-99); POTASSIUM 3.9 MEQ/L (3.7-5.4); SAMPLE HEMOLYSIS CHECK 0; SAMPLE ICTERIC CHECK 0; SAMPLE LIPEMIA CHECK 0; SODIUM 153 MEQ/L (136-147); UREA NITROGEN (BUN) 58 mg/dL (9-23)
[2017-01-10 08:31] VITALS: BP 135/84
[2017-01-10 11:27] VITALS: BP 124/84
[2017-01-10 12:15] LABS: POINT-OF-CARE METER ID UU14314088
[2017-01-10 13:58] LABS: INTERNAL CONTROL VALID? YES
[2017-01-10 16:38] VITALS: BP 142/98
[2017-01-10 17:42] LABS: POINT-OF-CARE METER ID UU14314088
[2017-01-10 21:31] VITALS: BP 131/94
[2017-01-10 23:45] LABS: POINT-OF-CARE METER ID UU14314088
[2017-01-11] VITALS (8 sets, daily range): BP systolic 116–135; BP diastolic 70–86
[2017-01-11 05:28] LABS: HEMATOCRIT 30.1 % (36.0-46.0); MCH 28.7 PG (29.0-34.0); MCHC 31.2 G/DL (30.0-36.0); MEAN PLAT.VOLUME 11.8 uM^3 (9.5-12.4); NRBC (%) 2.4 /100 WBC (0-0); PLATELET COUNT 58 K/uL (156-360); RBC DIS.WIDTH-CV 17.1 % (11.8-14.6); RBC DIS.WIDTH-SD 57.3 % (39-53); RED BLOOD COUNT 3.27 M/uL (3.80-5.20); WHITE BLOOD COUNT 10.6 K/uL (4.1-10.2)
[2017-01-11 05:42] LABS: POINT-OF-CARE METER ID UU14314088
[2017-01-11 05:54] LABS: ANION GAP 13 MEQ/L (2-14); CHLORIDE 123 MEQ/L (99-109); GFR ESTIMATE (CALCULATED) 36 mL/min/; GLUCOSE 266 mg/dL (70-99); POTASSIUM 3.6 MEQ/L (3.7-5.4); SAMPLE HEMOLYSIS CHECK 0; SAMPLE ICTERIC CHECK 0; SAMPLE LIPEMIA CHECK 0; SODIUM 153 MEQ/L (136-147); UREA NITROGEN (BUN) 60 mg/dL (9-23)
[2017-01-11 06:06] LABS: POINT-OF-CARE METER ID UU13113781
[2017-01-11 06:24] LABS: ABS NEUTROPHIL COUNT 9.8; ANISOCYTOSIS 1+; BAND NEUTROPHILS 1.8 % (0-8.0); BURR CELLS 1+; EOSINOPHIL ABS CT 0; HYPOCHROMASIA 1+; INSTRUMENT ABS NEUTROPHIL CT 8.6 K/uL; LYMPHOCYTES 2.6 % (15.0-45.0); MICROCYTOSIS 1+; NUCLEATED RBC'S 4.3; OVALOCYTES 2+; PLAT.SUFFICIENCY DECREASED; SEG.NEUTROPHILS 90.4 % (46.0-76.0); TEAR DROP CELLS 1+
[2017-01-11 11:43] LABS: POINT-OF-CARE METER ID UU13113698
[2017-01-11 19:18] LABS: POINT-OF-CARE METER ID UU13113774
[2017-01-12 00:19] LABS: POINT-OF-CARE METER ID UU13113774
[2017-01-12 03:52] VITALS: BP 119/81
[2017-01-12 05:58] LABS: POINT-OF-CARE METER ID UU13113774
[2017-01-12 06:33] LABS: ANION GAP 13 MEQ/L (2-14); CHLORIDE 118 MEQ/L (99-109); GFR ESTIMATE (CALCULATED) 41 mL/min/; GLUCOSE 288 mg/dL (70-99); POTASSIUM 3.9 MEQ/L (3.7-5.4); SAMPLE HEMOLYSIS CHECK 0; SAMPLE ICTERIC CHECK 0; SAMPLE LIPEMIA CHECK 0; SODIUM 147 MEQ/L (136-147); UREA NITROGEN (BUN) 56 mg/dL (9-23)
[2017-01-12 06:46] LABS: HEMATOCRIT 29.4 % (36.0-46.0); MCH 29.6 PG (29.0-34.0); MCV 92.5 FL (83-99); MEAN PLAT.VOLUME 13.6 uM^3 (9.5-12.4); NRBC (%) 0.8 /100 WBC (0-0); PLATELET COUNT 45 K/uL (156-360); RBC DIS.WIDTH-CV 16.7 % (11.8-14.6); RBC DIS.WIDTH-SD 56.5 % (39-53); RED BLOOD COUNT 3.18 M/uL (3.80-5.20); WHITE BLOOD COUNT 10.8 K/uL (4.1-10.2)
[2017-01-12 06:47] LABS: ANISOCYTOSIS 1+; ATYPICAL LYMPHOCYTE 0.9 %; BAND NEUTROPHILS 4.3 % (0-8.0); EOSINOPHIL ABS CT 0; INSTRUMENT ABS NEUTROPHIL CT 9.2 K/uL; METAMYELOCYTES 0.9 %; MICROCYTOSIS 1+; MYELOCYTES 2.6 %; NUCLEATED RBC'S 3.5; PLAT.SUFFICIENCY DECREASED; POIKILOCYTOSIS 1+; POLYCHROMASIA 1+; SEG.NEUTROPHILS 88.7 % (46.0-76.0)
[2017-01-12 07:48] VITALS: BP 142/84
[2017-01-12 11:26] LABS: POINT-OF-CARE METER ID UU13113774
[2017-01-12 12:22] VITALS: BP 140/80
[2017-01-12 16:25] LABS: POINT-OF-CARE METER ID UU13113725
[2017-01-12 17:03] VITALS: BP 144/86
[2017-01-12 23:28] VITALS: BP 123/83
[2017-01-13 00:30] LABS: POINT-OF-CARE METER ID UU13113774
[2017-01-13 05:58] LABS: POINT-OF-CARE METER ID UU13113774
[2017-01-13 07:26] VITALS: BP 131/85
[2017-01-13 12:21] LABS: POINT-OF-CARE METER ID UU13113725
[2017-01-13 16:35] VITALS: BP 133/80
[2017-01-13 17:52] LABS: POINT-OF-CARE METER ID UU13113725
[2017-01-13 23:51] LABS: POINT-OF-CARE METER ID UU13113774
[2017-01-14 00:01] VITALS: BP 90/62
[2017-01-14 00:10] VITALS: BP 127/82
[2017-01-14 06:26] LABS: POINT-OF-CARE METER ID UU13113774
[2017-01-14 07:17] VITALS: BP 118/76
[2017-01-14 11:19] LABS: POINT-OF-CARE METER ID UU13113725
[2017-01-14 11:50] VITALS: BP 107/79
[2017-01-14 16:16] LABS: POINT-OF-CARE METER ID UU13113774
[2017-01-14 17:13] VITALS: BP 112/70
[2017-01-15 00:26] LABS: POINT-OF-CARE METER ID UU13113774
[2017-01-15 06:11] LABS: POINT-OF-CARE METER ID UU13113725
[2017-01-15 06:42] LABS: ANION GAP 11 MEQ/L (2-14); CHLORIDE 107 MEQ/L (99-109); GFR ESTIMATE (CALCULATED) 56 mL/min/; GLUCOSE 237 mg/dL (70-99); POTASSIUM 3.6 MEQ/L (3.7-5.4); SAMPLE HEMOLYSIS CHECK 0; SAMPLE ICTERIC CHECK 0; SAMPLE LIPEMIA CHECK 0; UREA NITROGEN (BUN) 42 mg/dL (9-23)
[2017-01-15 06:44] LABS: SODIUM 133 MEQ/L (136-147)
[2017-01-15 06:57] LABS: EOSINOPHIL (%) 0 % (0-5); HEMATOCRIT 30.4 % (36.0-46.0); IMMATURE GRANULOCYTE (%) 1.5 % (0.0-0.7); IMMATURE GRANULOCYTE COUNT 0.3 K/uL; INSTRUMENT ABS NEUTROPHIL CT 17.4 K/uL; LYMPHOCYTE COUNT 0.2 K/uL (1.0-2.8); MCH 30.2 PG (29.0-34.0); MCHC 34.9 G/DL (30.0-36.0); MONOCYTE (%) 1.9 % (3-12); MONOCYTE COUNT 0.4 K/uL (0-0.8); NEUTROPHIL (%) 95.3 % (45-76); NEUTROPHIL COUNT 17.4 K/uL (1.8-6.4); NRBC (%) 0.6 /100 WBC (0-0); PLATELET COUNT 58 K/uL (156-360); RBC DIS.WIDTH-CV 15.8 % (11.8-14.6); RBC DIS.WIDTH-SD 48.6 % (39-53); RED BLOOD COUNT 3.51 M/uL (3.80-5.20); WHITE BLOOD COUNT 18.3 K/uL (4.1-10.2)
[2017-01-15 06:58] LABS: MCV 86.6 FL (83-99)
[2017-01-15 07:15] VITALS: BP 111/71
[2017-01-15 11:51] LABS: POINT-OF-CARE METER ID UU13113774
[2017-01-15 15:52] VITALS: BP 120/76
[2017-01-15 16:27] LABS: POINT-OF-CARE METER ID UU13113774
== END 2017-01-15 17:22 | disposition hospice, home (50) | DRG 682 ==
LOC: EME → EDBD 20:10 → EME 20:10 → EDOF 22:31 → 5EAST 22:31 → EDOF 22:31 → ENRESERV 22:36 → EDOF 01-01 00:03 → 5EAST 01-01 00:05 → 4WEST 01-05 19:22 → ENRESERV 01-07 20:12 → 4EAST 01-07 22:12 → ENRESERV 01-10 15:21 → 5EAST 01-11 16:04
PROVIDERS: Hospitalist; Internal Medicine; Physician Assistant Medical; Student in an Organized Health Care Education/Training Program; Surgery
PROC: 30233N1 Transfusion of Nonautologous Red Blood Cells into Peripheral Vein, Percutaneous Approach (ICD-10-PCS; principal; 2017-01-08)
DX: N17.9 Acute kidney failure, unspecified (principal); A41.51 Sepsis due to Escherichia coli [E. coli]; R65.20 Severe sepsis without septic shock; J18.9 Pneumonia, unspecified organism; J96.01 Acute respiratory failure with hypoxia; C53.9 Malignant neoplasm of cervix uteri, unspecified; C77.8 Secondary and unspecified malignant neoplasm of lymph nodes of multiple regions; C78.00 Secondary malignant neoplasm of unspecified lung; C78.7 Secondary malignant neoplasm of liver and intrahepatic bile duct; C79.31 Secondary malignant neoplasm of brain; G93.6 Cerebral edema; E86.0 Dehydration; E87.0 Hyperosmolality and hypernatremia; E87.2 Acidosis; E87.5 Hyperkalemia; D68.51 Activated protein C resistance; R73.9 Hyperglycemia, unspecified; D72.829 Elevated white blood cell count, unspecified; T38.0X5A Adverse effect of glucocorticoids and synthetic analogues, initial encounter; D64.9 Anemia, unspecified; I10 Essential (primary) hypertension; K21.9 Gastro-esophageal reflux disease without esophagitis; K59.00 Constipation, unspecified; E27.8 Other specified disorders of adrenal gland; F32.9 Major depressive disorder, single episode, unspecified; I95.9 Hypotension, unspecified; R00.0 Tachycardia, unspecified; R06.82 Tachypnea, not elsewhere classified; R19.5 Other fecal abnormalities; R19.7 Diarrhea, unspecified; E66.01 Morbid (severe) obesity due to excess calories; Z68.37 Body mass index [BMI] 37.0-37.9, adult; Z79.01 Long term (current) use of anticoagulants; Z86.711 Personal history of pulmonary embolism; Z86.718 Personal history of other venous thrombosis and embolism; Z87.891 Personal history of nicotine dependence
CPT/HCPCS: 36600; 70450; 71010; 71020; 71275; 74176; 78580; 80048; 80048 91; 80053; 80069; 81003; 82140; 82272; 82550; 82570; 82803; 82948; 83605; 83735; 84156; 84300; 84484; 84540; 84702; 85025; 85027; 85379; 86850; 86900; 86901; 86920; 87040; 87070; 87077; 87086; 87186; 87205; 87493; 87641; 87801; 92610 GN; 93005; 94760; 94799; 97530 GP; 99281; 99285; A9540; C1753; C9113; G0378; J1100; J1650; J1815; J2270; J2405; J2543; J2765; J3370; J3480; J7030; J7050; J7070; P9016

== ENCOUNTER 2017-01-15 17:36 | Emergency (ER) | payer OTHER ==
[~2017-01-15 17:36] MED LIST changes: +VENLAFAXINE H37.5 MG PO
== END 2017-01-15 23:36 ==
LOC: EME 17:36
DX: I46.9 Cardiac arrest, cause unspecified (principal); R09.2 Respiratory arrest; C79.9 Secondary malignant neoplasm of unspecified site; C55 Malignant neoplasm of uterus, part unspecified
CPT/HCPCS: 99281; 99285; C1751; C1769; C1894; J0171; J0282